=== PATIENT | male | born 1975 | race Caucasian/White ===

== ENCOUNTER 2020-03-06 17:42 | Emergency (ER) | payer BC ==
[2020-03-06] MEDS ORDERED: Sodium Chloride 0.9% 2.5 ML Syringe FLUSH PRN (17:49)
[2020-03-06] MEDS ORDERED: Sodium Chloride 0.9% 10 ML Syringe FLUSH PRN (17:49)
--- NOTE | 2020-03-06 17:55 | EDM.PDOC ---
<Papito Ovalles - Last Filed: 03/06/20 21:23> ED HPI GENERAL MEDICAL PROBLEM - General Chief Complaint: Upper Extremity Injury/Pain Stated Complaint: RIGHT ARM INJURY Time Seen by Provider: 03/06/20 17:44 - Related Data Allergies Allergy/AdvReac Type Severity Reaction Status Date / Time Penicillins Allergy Other Verified 03/06/20 17:49 Home Meds: Home Meds . [No Known Home Meds] 03/06/20 [History] ED TRAUMA EXTREMITY PROCEDURES - Joint Reduction Right Elbow Sedation: Conscious Sedation Pre-Procedure NV Status: Normal Post-Procedure NV Status: Normal Technique: Traction/Counter Traction Post-Reduction Imaging: Completely Reduced Joint Reduction Complications: No Progress/Comments: Dr. Lopez came in and successfully reduce the elbow - Splinting Right Upper Extremity Splint Site: Right elbow Pre-Procedure NV Status: Normal Post-Procedure NV Status: Normal Splint Material: Plaster Splint Design: Posterior Applied & Form Fitted By: Nurse Provider Post-Splint Application NV Check: NV Status Normal Course - Re-Assessments/Exams Free Text/Narrative Re-Assessment/Exam: 03/06/20 19:38 Elbow successfully reduced at the bedside with countertraction. Patient is neuro vastly intact both pre and post procedure. Patient tolerated procedure well. Patient placed in posterior long-arm splint. Patient will follow up with orthopedics next week. 03/06/20 20:09 What you are ordering posterior long arm splint Why you are ordering it Joint Stabilization How it will benefit patient prevent dislocation How long is patient to use it 7 days or until pt is seen by ortho 03/06/20 20:[address] to [address]o Dr[address] Lopez about post reduction findings of there still being some widen of the radius and capitellar. Dr. Lopez came in and assisted with the reduction. Elbow change to be correctly reduced. Departure - Departure Time of Disposition: 19:59 Disposition: Home, Self-Care 01 Condition: Good Clinical Impression: Elbow dislocation - Discharge Information *PRESCRIPTION DRUG MONITORING PROGRAM REVIEWED*: Not Applicable *COPY OF PRESCRIPTION DRUG MONITORING REPORT IN PATIENT MICHELLE: Not Applicable Instructions: Elbow Dislocation, [id number] Referrals: PCP,None [Primary Care Provider] - Forms: ED Department Discharge Additional Instructions: Please follow-up with the orthopedic doctor 7 days. If you have any numbness weakness or tingling to your arm please return to the ED. Follow up 03/11 or 03/[address] Lopez at the orthopedic clinic. You can take ibuprofen for pain. The following information is given to patients seen in the emergency department who are being discharged to home. This information is to outline your options for follow-up care. We provide all patients seen in our emergency department with a follow-up referral. The need for follow-up, as well as the timing and circumstances, are variable depending upon the specifics of your emergency department visit. If you don't have a primary care physician on staff, we will provide you with a referral. We always advise you to contact your personal physician following an emergency department visit to inform them of the circumstance of the visit and for follow-up with them and/or the need for any referrals to a consulting specialist. The emergency department will also refer you to a specialist when appropriate. This referral assures that you have the opportunity for follow-up care with a specialist. All of these measure are taken in an effort to provide you with optimal care, which includes your follow-up. Under all circumstances we always encourage you to contact your private physician who remains a resource for coordinating your care. When calling for follow-up care, please make the office aware that this follow-up is from your recent emergency room visit. If for any reason you are refused follow-up, please contact the [facility] Emergency Department at and asked to speak to the emergency department charge nurse. Please follow up with your primary care physician. If you do not have a primary care physician, see below: [facility] [address], [address] [place] [address] Please follow-up with the orthopedic doctor 7 days. If you have any numbness weakness or tingling to your arm please return to the ED. <Los Kennedy - Last Filed: 03/07/20 06:49> ED HPI GENERAL MEDICAL PROBLEM - History of Present Illness INITIAL COMMENTS - FREE TEXT/NARRATIVE: History of present illness: [] This athletic 44-year-old male kicked after a soccer ball and kicked so high with his left foot that he threw himself off balance and landed on his right elbow. He has a deformity now and severe pain when he moves it. He is relatively pain-free when he is not moving it. Motor sensory and ulnar exam structures are intact. He is a chiropractic physician me the above history. Last P.o. was an hour before this happened (17:45) and he had 1 inch of banana and a sip of water. Before that he had a smoothie at 2 PM. Review of systems: As per history of present illness and below otherwise all systems reviewed and negative. Past medical history: As per history of present illness and as reviewed below otherwise noncontributory. Surgical history: As per history of present illness and as reviewed below otherwise noncontributory. Social history: No reported history of drug or alcohol abuse. Family history: As per history of present illness and as reviewed below otherwise noncontributory. Physical exam: Constitutional - well developed, well-nourished and in no acute distress HEENT - normocephalic, no evidence of trauma - external nose and mouth normal - no mass in neck and no JVD - mucosae moist EYES - full EOM, PERRL, no icterus - no evidence of inflammation, injection, or drainage Respiratory - no respiratory distress, equal bilateral expansion Vascular exam-radial pulses intact, the right hand is warm, and the capillary refill is intact. Musculoskeletal is obvious deformity of the right elbow. The olecranon is palpable posterior to the elbow joint and there is tenderness. No gross deformity of long bones or joints - no tenderness, swelling or edema Neurologic -median ulnar and radial distribution motor sensory exam intact in the right upper extremity. Alert and oriented times four - CN II-XII grossly intact - motor sensory and coordination symmetrically normal Psychiatric - appropriate mood and affect with normal thought content Hematologic - No petechiae or purpura - mucosa appropriate color and sclera not pale - normal nail bed color and refill Integument - no rash or evidence of trauma - normal turgor Diagnostics: [] Therapeutics: [] Impression: [] Plan: [] Definitive disposition and diagnosis as appropriate pending reevaluation and review of above. right arm Pain Score (Numeric/FACES): 9 Review of Systems - Review of Systems Review Of Systems: Comprehensive ROS is negative, except as noted in HPI. ED EXAM, GENERAL - Physical Exam Exam: See Below Free Text/Narrative:: My physical exam is in the HPI Course - Vital Signs Text/Narrative:: At the end of my shift the hospital coder was preparing to sedate the patient for reduction and I turned his care, disposition and follow up instruction over to my partner Dr. Ovalles. Last Recorded V/S: Last Vital Signs Temp 36.4 C 03/06/20 21:19 Pulse 96 03/06/20 21:19 Resp 18 03/06/20 21:19 BP 141/73 H 03/06/20 21:19 Pulse Ox 96 03/06/20 21:19 - Orders/Labs/Meds Orders: Active Orders 24 hr Category Date Time Status DME for Discharge [COMM] Stat Oth 03/06/20 20:07 Ordered Saline Lock Insert [OM.PC] Stat Oth 03/06/20 17:50 Ordered Labs: Laboratory Tests 03/06/20 03/06/20 Range/Units 18:32 18:32 WBC 12.85 H (4.0-11.0) K/uL RBC 4.73 (4.50-5.90) M/uL Hgb 14.1 (13.0-17.0) g/dL Hct 41.4 (38.0-50.0) % MCV 87.5 (80.0-98.0) fL MCH 29.8 (27.0-32.0) pg MCHC 34.1 (31.0-37.0) g/dL RDW Std Deviation 39.4 (28.0-62.0) fl RDW Coeff of Hannah 12 (11.0-15.0) % Plt Count 146 L (150-400) K/uL MPV 11.30 (7.40-12.00) fL Neut % (Auto) 82.5 H (48.0-80.0) % Lymph % (Auto) 11.6 L (16.0-40.0) % [place] % (Auto) 5.1 (0.0-15.0) % Eos % (Auto) 0.6 (0.0-7.0) % Baso % (Auto) 0.2 (0.0-1.5) % Neut # (Auto) 10.6 H (1.4-5.7) K/uL Lymph # (Auto) 1.5 (0.6-2.4) K/uL [place] # (Auto) 0.7 (0.0-0.8) K/uL Eos # (Auto) 0.1 (0.0-0.7) K/uL Baso # (Auto) 0.0 (0.0-0.1) K/uL Nucleated RBC % 0.0 /100WBC Nucleated RBCs # 0 K/uL Sodium 136 (136-148) mmol/L Potassium 3.7 (3.5-5.1) mmol/L Chloride 101 (98-107) mmol/L Carbon Dioxide 26.3 (21.0-32.0) mmol/L BUN 7 (7.0-18.0) mg/dL Creatinine 1.1 (0.8-1.3) mg/dL Est Cr Clr Drug Dosing 93.08 mL/min Estimated GFR (MDRD) > 60.0 ml/min Glucose 101 (74-106) mg/dL Calcium 8.9 (8.5-10.1) mg/dL Meds: Medications Discontinued Medications Generic Name Dose Route Start Last Admin Trade Name Noelle PRN Reason Stop Dose Admin Fentanyl 100 mcg 03/06/20 18:02 03/06/20 18:36 Fentanyl IVPUSH 03/06/20 18:03 100 mcg ONETIME ONE Administration Fentanyl Confirm 03/06/20 18:04 03/06/20 18:33 Sublimaze Administered 03/06/20 18:05 Not Given Dose 100 mcg .ROUTE .STK-MED ONE Fentanyl Confirm 03/06/20 18:48 Sublimaze Administered 03/06/20 18:49 Dose 250 mcg .ROUTE .STK-MED ONE Midazolam HCl Confirm 03/06/20 18:48 Versed 1 Mg/Ml Administered 03/06/20 18:49 Dose 2 mg .ROUTE .STK-MED ONE Ondansetron HCl 4 mg 03/06/20 18:02 03/06/20 18:37 Zofran IVPUSH 03/06/20 18:03 4 mg ONETIME ONE Administration Ondansetron HCl Confirm 03/06/20 18:50 Zofran Administered 03/06/20 18:51 Dose 4 mg .ROUTE .STK-MED ONE Propofol Confirm 03/06/20 18:48 Diprivan 20 Ml Administered 12 18:49 Dose 200 mg .ROUTE .STK-MED ONE Sodium Chloride 10 ml 03/06/20 17:49 03/06/20 18:34 Saline Flush FLUSH 10 ml ASDIRECTED PRN Administration Keep Vein Open Sodium Chloride 2.5 ml 03/06/20 17:49 03/06/20 18:34 Saline Flush FLUSH 2.5 ml ASDIRECTED PRN Administration Keep Vein Open Sepsis Event Note (ED) - Focused Exam Vital Signs: Vital Signs Temp Pulse Resp BP Pulse Ox 03/06/20 21:19 36.4 C 96 18 141/73 H 96 - My Orders Last 24 Hours: My Active Orders 03/06/20 17:50 Saline Lock Insert [OM.PC] Stat - Assessment/Plan Last 24 Hours: My Active Orders 03/06/20 17:50 Saline Lock Insert [OM.PC] Stat
[2020-03-06] MEDS ORDERED: Ondansetron 4 MG/2 ML SDV IVPUSH ONE (18:02)
[2020-03-06] MEDS ORDERED: fentaNYL 50 MCG/ML SDV IVPUSH ONE (18:02)
[2020-03-06] MEDS ORDERED: fentaNYL 100 MCG/2 ML SDV ONE (18:04)
--- NOTE | 2020-03-06 18:45 | PCM.PREANE ---
Preanesthetic Assessment - Procedure Proposed Procedure: Closed reduction of right elbow - Anesthesia/Transfusion/Family Hx Anesthesia History: Prior Anesthesia Without Reaction Family History of Anesthesia Reaction: No Transfusion History: No Prior Transfusion(s) Intubation History: Unknown Additional History: Pt takes an assortment of herbs and supplements. Last this AM. - Review of Systems General: No Symptoms Pulmonary: No Symptoms Cardiovascular: No Symptoms Gastrointestinal: No Symptoms Neurological: No Symptoms Other: Reports: None - Physical Assessment NPO Status Date: 03/06/20 NPO Status Time: 14:00 (with one bite of banana and clears at 1745) Vital Signs: Last Vital Signs Temp 37.0 C 03/06/20 17:51 Pulse 56 L 03/06/20 17:51 Resp 16 03/06/20 17:51 BP 135/86 03/06/20 17:51 Pulse Ox 100 03/06/20 17:51 Height: 1.83 m Weight: 83.915 kg ASA Class: 2 Mental Status: Alert & Oriented x3 Dentition: Reports: Normal Dentition Thyro-Mental Finger Breadths: 3 Mouth Opening Finger Breadths: 3 ROM/Head Extension: Full Lungs: Clear to Auscultation, Normal Respiratory Effort Cardiovascular: Regular Rate, Regular Rhythm - Lab Values: Laboratory Last Values WBC 12.85 K/uL (4.0-11.0) H 03/06/20 18:32 RBC 4.73 M/uL (4.50-5.90) 03/06/20 18:32 Hgb 14.1 g/dL (13.0-17.0) 03/06/20 18:32 Hct 41.4 % (38.0-50.0) 03/06/20 18:32 MCV 87.5 fL (80.0-98.0) 03/06/20 18:32 MCH 29.8 pg (27.0-32.0) 03/06/20 18:32 MCHC 34.1 g/dL (31.0-37.0) 03/06/20 18:32 RDW Std Deviation 39.4 fl (28.0-62.0) 03/06/20 18:32 RDW Coeff of Hannah 12 % (11.0-15.0) 03/06/20 18:32 Plt Count 146 K/uL (150-400) L 03/06/20 18:32 MPV 11.30 fL (7.40-12.00) 03/06/20 18:32 Neut % (Auto) 82.5 % (48.0-80.0) H 03/06/20 18:32 Lymph % (Auto) 11.6 % (16.0-40.0) L 03/06/20 18:32 [place] % (Auto) 5.1 % (0.0-15.0) 03/06/20 18:32 Eos % (Auto) 0.6 % (0.0-7.0) 03/06/20 18:32 Baso % (Auto) 0.2 % (0.0-1.5) 03/06/20 18:32 Neut # (Auto) 10.6 K/uL (1.4-5.7) H 03/06/20 18:32 Lymph # (Auto) 1.5 K/uL (0.6-2.4) 03/06/20 18:32 [place] # (Auto) 0.7 K/uL (0.0-0.8) 03/06/20 18:32 Eos # (Auto) 0.1 K/uL (0.0-0.7) 03/06/20 18:32 Baso # (Auto) 0.0 K/uL (0.0-0.1) 03/06/20 18:32 Nucleated RBC % 0.0 /100WBC 03/06/20 18:32 Nucleated RBCs # 0 K/uL 03/06/20 18:32 - Allergies Allergies/Adverse Reactions: Allergies Allergy/AdvReac Type Severity Reaction Status Date / Time Penicillins Allergy Other Verified 03/06/20 17:49 - Acknowledgements Anesthesia Type Planned: MAC Pt an Appropriate Candidate for the Planned Anesthesia: Yes Alternatives and Risks of Anesthesia Discussed w Pt/Guardian: Yes Pt/Guardian Understands and Agrees with Anesthesia Plan: Yes Additional Comments: Plan for light sedation (maintaining consciousness and airway reflexes) in light of non-NPO status discussed with, and agreed upon, by ED physician and patient. Smoothie at 1400 (no protein, pt on cleanse with kale and fruit smoothie) small bite banana at 1730. Discussed risks, benefits, alternatives, and anesthesia coverage with patient. All questions answered and concerns addressed. Consent signed with RN witness. PreAnesthesia Questionnaire - Infectious Disease History Infectious Disease History: Reports: Chicken Pox - Past Surgical History Other Musculoskeletal Surgeries/Procedures:: left shoulder - SUBSTANCE USE Tobacco Use Status *Q: Never Tobacco User Recreational Drug Use History: No - HOME MEDS Home Medications: Home Meds . [No Known Home Meds] 03/06/20 [History] - CURRENT (IN HOUSE) MEDS Current Meds: Current Medications Sodium Chloride (Saline Flush) 10 ml FLUSH ASDIRECTED PRN PRN Reason: Keep Vein Open Last Admin: 03/06/20 18:34 Dose: 10 ml Documented by: Sodium Chloride (Saline Flush) 2.5 ml FLUSH ASDIRECTED PRN PRN Reason: Keep Vein Open Last Admin: 03/06/20 18:34 Dose: 2.5 ml Documented by: Discontinued Medications Fentanyl (Fentanyl) 100 mcg IVPUSH ONETIME ONE Stop: 03/06/20 18:03 Last Admin: 03/06/20 18:36 Dose: 100 mcg Documented by: Fentanyl (Sublimaze) Confirm Administered Dose 100 mcg .ROUTE .STK-MED ONE Stop: 03/06/20 18:05 Last Admin: 03/06/20 18:33 Dose: Not Given Documented by: Ondansetron HCl (Zofran) 4 mg IVPUSH ONETIME ONE Stop: 03/06/20 18:03 Last Admin: 03/06/20 18:37 Dose: 4 mg Documented by:
[2020-03-06] MEDS ORDERED: Midazolam 1 MG/ML 2 ML SDV ONE (18:48)
[2020-03-06] MEDS ORDERED: fentaNYL 250 MCG/5 ML SDV ONE (18:48)
[2020-03-06] MEDS ORDERED: Propofol 200 MG/20 ML SDV ONE (18:48)
[2020-03-06] MEDS ORDERED: Ondansetron 4 MG/2 ML SDV ONE (18:50)
[2020-03-06 18:51] LABS: BLOOD UREA NITROGEN,BUN 7 mg/dL (7.0-18.0); CARBON DIOXIDE,CO2 26.3 mmol/L (21.0-32.0); CHLORIDE,CL 101 mmol/L (98-107); GLUCOSE RANDOM 101 mg/dL (74-106); POTASSIUM,K 3.7 mmol/L (3.5-5.1); SODIUM,NA 136 mmol/L (136-148)
--- NOTE | 2020-03-06 19:08 | CR ---
INDICATION: Patient slipped and fall directly on right elbow TECHNIQUE: Elbow radiograph 3 views right COMPARISON: None FINDINGS: Bone: A small osseous fragment seen in the elbow joint on the lateral view measuring 4 mm. Joint: Posterior dislocation of the olecranon and radial head are present with respect to the humerus. No significant displacement of the anterior or posterior fat pads noted to suggest an effusion. Soft tissue: Unremarkable. No radiopaque foreign bodies are seen. IMPRESSIONS: 1. Posterior dislocation of the olecranon and radial head are present with respect to the humerus. 2. A small osseous fragment seen in the elbow joint on the lateral view measuring 4 mm. The donor site is not well identified. Dictated by Gennaro Mcclendon MD @ 03/06/2020 7:07:11 PM Dictated by: Gennaro Mcclendon MD @ 03/06/2020 19:07:16 (Electronically Signed)
--- NOTE | 2020-03-06 19:57 | PCM.POSTAN ---
POST ANESTHESIA ASSESSMENT - MENTAL STATUS Mental Status: Alert, Oriented - VITAL SIGNS Vital Signs: Last Vital Signs Temp 37.0 C 03/06/20 17:51 Pulse 56 L 03/06/20 17:51 Resp 16 03/06/20 17:51 BP 135/86 03/06/20 17:51 Pulse Ox 100 03/06/20 17:51 - RESPIRATORY Respiratory Status: Respiratory Rate WNL, Airway Patent, O2 Saturation Stable - CARDIOVASCULAR CV Status: Pulse Rate WNL, Blood Pressure Stable - GASTROINTESTINAL GI Status: No Symptoms Free Text/Narrative:: Denies nausea - PAIN Pain Score: 0 Free Text/Narrative:: Denies pain at rest - POST OP HYDRATION Hydration Status: Adequate & Stable - OBSERVATIONS Free Text/Narrative:: Alert, oriented, and conversant. VSS. HR 70, BP 127/72, SAT 99% on 4LNC, RR 13. Full report given to Dr. Ovalles and RN, care transferred.
--- NOTE | 2020-03-06 20:09 | CR ---
INDICATION: Elbow dislocation status Post-reduction TECHNIQUE: Elbow radiograph 2 views right COMPARISON: 03/06/2020 FINDINGS: Bone: No acute fractures or aggressive bone lesions are identified. While the olecranon-trochlear articulation is been reduced, the radial head-capitellar articulation remains widened and incongruent. The small osseous fragment within the elbow joint seen on prior examination is not visualized. Joint: See above. No significant displacement of the anterior or posterior fat pads noted to suggest an effusion. Soft tissue: Unremarkable. No radiopaque foreign bodies are seen. IMPRESSION: 1. While the olecranon-trochlear articulation is been reduced, the radial head-capitellar articulation remains widened and incongruent. Dictated by Gennaro Mcclendon MD @ 03/06/2020 8:08:16 PM Dictated by: Gennaro Mcclendon MD @ 03/06/2020 20:08:20 (Electronically Signed)
--- NOTE | 2020-03-06 20:14 | PCM.SN.2 ---
- Free Text/Narrative Note: Anesthesia time [id number] Procedure time [id number] 1907- bedside to sedate for reduction of right shoulder dislocation as requested by ER MD. Discussed risks, benefits, recovery with patient. Patient participated in H&P. All questions answered and concerns addressed. Consent signed in presence of RN witness. 1911- Monitors on (BP, pulse ox, 5 lead EKG, continuous ETCO2), 6LNC. Pre- procedure VS: NSR, HR 66, RR 24, BP 122/69, 100% O2. Positive ETCO2 throughout, NSR throughout, VS as follows (In HR, RR, BP, O2 f ormat): 1914: 68, 14, 122/86, 99% 1914: Start of sedation, start of procedure. Josr Xiao and RN (Toño) bedside. 1919: 67, bag assist, 113/71 (Pt. temporarily apneic, bag assist for approx. 30 seconds until resumed spontaneous resp. Transient hypoxia to 79% corrected within seconds to 95%) 1922: 83, 10, 105/62, 95% 1925: 71, 12, 122/88, 97% 1928: 69, 9, 115/70, 98% 1929: End Procedure Total given incrementally IV: 150mg propofol, 150 mcg fentanyl, 2mg versed Recovery VS: 1934: 68, 12, 117/68, 98% 1939: 72, 14, 114/62, 98%, fully awake and conversing, denies pain 1944: 71, 10, 122/76, 98% End anesthesia care 1948, pt awake and conversing, denies pain, denies nausea, full report to ER MD and RN, VSS.
--- NOTE | 2020-03-06 21:16 | PCM.CONS ---
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 Patient fell on right outstretched hand with elbow fully extended while playing football. Immediate onset of pain. Seen in ER and reduction attempted. Post-reduction x-rays show elbow still subluxed. No other injuries. No hand numbness. right arm Pain Score (Numeric/FACES): 9 - Related Data Allergies/Adverse Reactions: Allergies Allergy/AdvReac Type Severity Reaction Status Date / Time Penicillins Allergy Other Verified 03/06/20 17:49 Home Medications: Home Meds . [No Known Home Meds] 03/06/20 [History] Past Medical History - Infectious Disease History Infectious Disease History: Reports: Chicken Pox - Past Surgical History Other Musculoskeletal Surgeries/Procedures:: left shoulder Social & Family History - Tobacco Use Tobacco Use Status *Q: Never Tobacco User - Recreational Drug Use Recreational Drug Use: No H&P Review of Systems - Review of Systems: Review Of Systems: See Below Exam - Exam Exam: See Below - Vital Signs Vital Signs: Last Vital Signs Temp 98.6 F 03/06/20 17:51 Pulse 56 L 03/06/20 17:51 Resp 16 03/06/20 17:51 BP 135/86 03/06/20 17:51 Pulse Ox 100 03/06/20 17:51 Weight: 185 lb - Exam Physical Exam Comments:: Skin intact Olecranon appears lateral to normal position Elbow deeep palpation, ROM, stability, and strength testing deferred due to d islocation Radial pulse palpable Median, ulnar, and radial nerve distributions intact to light touch Moves fingers - Patient Data Lab Results Last 24 hrs: Laboratory Results - last 24 hr 03/06/20 03/06/20 Range/Units 18:32 18:32 WBC 12.85 H (4.0-11.0) K/uL RBC 4.73 (4.50-5.90) M/uL Hgb 14.1 (13.0-17.0) g/dL Hct 41.4 (38.0-50.0) % MCV 87.5 (80.0-98.0) fL MCH 29.8 (27.0-32.0) pg MCHC 34.1 (31.0-37.0) g/dL RDW Std Deviation 39.4 (28.0-62.0) fl RDW Coeff of Hannah 12 (11.0-15.0) % Plt Count 146 L (150-400) K/uL MPV 11.30 (7.40-12.00) fL Neut % (Auto) 82.5 H (48.0-80.0) % Lymph % (Auto) 11.6 L (16.0-40.0) % [place] % (Auto) 5.1 (0.0-15.0) % Eos % (Auto) 0.6 (0.0-7.0) % Baso % (Auto) 0.2 (0.0-1.5) % Neut # (Auto) 10.6 H (1.4-5.7) K/uL Lymph # (Auto) 1.5 (0.6-2.4) K/uL [place] # (Auto) 0.7 (0.0-0.8) K/uL Eos # (Auto) 0.1 (0.0-0.7) K/uL Baso # (Auto) 0.0 (0.0-0.1) K/uL Nucleated RBC % 0.0 /100WBC Nucleated RBCs # 0 K/uL Sodium 136 (136-148) mmol/L Potassium 3.7 (3.5-5.1) mmol/L Chloride 101 (98-107) mmol/L Carbon Dioxide 26.3 (21.0-32.0) mmol/L BUN 7 (7.0-18.0) mg/dL Creatinine 1.1 (0.8-1.3) mg/dL Est Cr Clr Drug Dosing 93.08 mL/min Estimated GFR (MDRD) > 60.0 ml/min Glucose 101 (74-106) mg/dL Calcium 8.9 (8.5-10.1) mg/dL Result Diagrams: 03/06/20 18:32 03/06/20 18:32 Sepsis Event Note - Evaluation Sepsis Screening Result: No Definite Risk - Focused Exam Vital Signs: Vital Signs Temp Pulse Resp BP Pulse Ox 03/06/20 17:51 98.6 F 56 L 16 135/86 100 Consult PN Assessment/Plan Procedures: Procedures CHEST X-RAY 2VW FRONTAL&LATL (04/11/16) COMPLETE CBC AUTOMATED (04/11/16) ROUTINE VENIPUNCTURE (04/11/16) Problem List Initiated/Reviewed/Updated: Yes Plan: Recommend repeat reduction. Patient agrees. All questions answered. Use posterior long arm splint until seen in clinic on 10 or 11. Procedure: The elbow was gently extended and the olecranon was medialized Longitudinal traction resulted in palpable reduction Posterior long arm splint was reapplied Patient tolerated procedure well Post-reduction views show concentric reduction
--- NOTE | 2020-03-06 21:16 | CR ---
INDICATION: Elbow dislocation status Post-reduction TECHNIQUE: Elbow radiograph 2 views right COMPARISON: 03/06/2020 FINDINGS: Bone: No acute fractures or aggressive bone lesions are identified. Joint: On the lateral view, the elbow joint appears to be in anatomic positioning but cannot be well assessed on the frontal view due to elbow flexion. The elbow joint is not profiled on the frontal view. No significant displacement of the anterior or posterior fat pads noted to suggest an effusion. Soft tissue: An overlying posterior splint is noted which limits evaluation of the underlying osseous structures and soft tissues. No radiopaque foreign bodies are seen. IMPRESSION: 1. On the lateral view, the elbow joint appears to be in anatomic positioning but cannot be well assessed on the frontal view due to elbow flexion. Dictated by Gennaro Mcclendon MD @ 03/06/2020 9:14:55 PM Dictated by: Gennaro Mcclendon MD @ 03/06/2020 21:14:59 (Electronically Signed)
== END 2020-03-06 21:19 | disposition home or self-care (01) ==
LOC: MW.ED 17:42
DX: S53.024A Posterior dislocation of right radial head, initial encounter (principal); Z88.0 Allergy status to penicillin; W19.XXXA Unspecified fall, initial encounter; Y93.66 Activity, soccer
CPT/HCPCS: 24600; 36415; 73070; 73080; 80048; 85025; 96374; 96375; 99283; J2250; J2405; J2704; J3010; 24605